=== PATIENT | male | born 1990 ===

== ENCOUNTER 2021-02-10 10:30 | Inpatient (IN) | payer MEDICAID ==
--- NOTE | 2021-02-10 11:25 | EDM.PDOC ---
<Edith Mead - Last Filed: 02/10/21 16:08> ED HPI GENERAL MEDICAL PROBLEM - General Chief Complaint: Skin Complaint Stated Complaint: LEFT ARM INFECTION/SWOLLEN SORE Time Seen by Provider: 02/10/21 10:50 Source of Information: Reports: Patient History Limitations: Reports: No Limitations - History of Present Illness INITIAL COMMENTS - FREE TEXT/NARRATIVE: Patient is a 30 y.o. male who presents to the ED with a skin infection to the left forearm with associated chills, headache, and nausea/vomiting. The patient states he began having pain in his left arm around 1 a.m. this morning, and noticed some redness and swelling. He took 2 extra strength Tylenol at that time with no relief. He also had 2 events of emesis early this morning and has some mild nausea and diffuse headache on arrival. He reports feeling chilled this morning but did not take his temperature. He reports the pain in his left arm has progressed into his left hand and right hand. He denies cough, SOB, chest pain, abdominal pain, diarrhea, constipation, dysuria, hematuria, or rash. He reports no recent alcohol or drug use. He admits to using marijuana but states he has not used in over a month. Patient has no known drug allergies. Onset: Today Duration: Constant Location: Reports: Upper Extremity, Left (left forearm ) Severity: Moderate Improves with: Reports: None Worsens with: Reports: None Associated Symptoms: Reports: Fever/Chills, Headaches, Nausea/Vomiting, Weakness Treatments [employer]: Reports: Acetaminophen (with no relief ) Left Arm Pain Score (Numeric/FACES): 10 - Related Data Allergies Allergy/AdvReac Type Severity Reaction Status Date / Time No Known Allergies Allergy Verified 02/10/21 10:48 Home Meds: Home Meds Acetaminophen [Tylenol] 650 mg PO Q4H PRN tablet 02/10/21 [Rx] Clindamycin in 0.9 % Sod Chlor [Clindamycin 900 mg/50 ml-Ns] 900 mg IV ONETIME #1 piggyback 02/10/21 [Rx] Enoxaparin [Lovenox] 40 mg SUBCUT DAILY syringe 02/10/21 [Rx] Piperacillin/Tazobactam [Zosyn 3.375 GM] 3.375 gm IV ONETIME #1 vial 02/10/21 [Rx] Vancomycin/Water For INJ (PEG) [Vancomycin 1.25 gm/250 ml Bag] 1.25 gm IV ONETIME #1 piggyback 02/10/21 [Rx] Past Medical History HEENT History: Reports: None Cardiovascular History: Reports: None Respiratory History: Reports: None Gastrointestinal History: Reports: None Genitourinary History: Reports: None Musculoskeletal History: Reports: None Neurological History: Reports: None Psychiatric History: Reports: None Endocrine/Metabolic History: Reports: None Hematologic History: Reports: None Immunologic History: Reports: None Oncologic (Cancer) History: Reports: None Dermatologic History: Reports: None - Infectious Disease History Infectious Disease History: Reports: None - Past Surgical History Head Surgeries/Procedures: Reports: None Social & Family History - Tobacco Use Tobacco Use Status *Q: Current Every Day Tobacco User Years of Tobacco use: 2 Packs/Tins Daily: 0.5 Second Hand Smoke Exposure: No - Caffeine Use Caffeine Use: Reports: Soda - Recreational Drug Use Recreational Drug Type: Reports: Marijuana/Hashish Other Recreational Drug Type: smokes about a month ago ED ROS GENERAL - Review of Systems Review Of Systems: See Below Constitutional: Reports: Fever, Chills, Fatigue HEENT: Reports: No Symptoms. Denies: Ear Pain, Throat Pain, Vision Change Respiratory: Denies: Shortness of Breath, Cough Cardiovascular: Reports: No Symptoms. Denies: Chest Pain, Dyspnea on Exertion GI/Abdominal: Reports: Nausea, Vomiting. Denies: Abdominal Pain, Diarrhea, Hematemesis : Reports: No Symptoms Musculoskeletal: Reports: Other (pain of the left forearm and in bilateral hands ) Skin: Reports: Erythema (erythema and swelling on the left forearm ) Neurological: Reports: Headache. Denies: Confusion, Dizziness, Numbness, Paresthesia Psychiatric: Reports: No Symptoms Hematologic/Lymphatic: Reports: No Symptoms ED EXAM, SKIN/RASH Exam: See Below Exam Limited By: No Limitations General Appearance: Alert, WD/WN, No Apparent Distress Eye Exam: Bilateral Eye: EOMI, Other (sclera icterus ) Nose: Normal Inspection, Normal Mucosa, No Blood Throat/Mouth: Normal Inspection, Normal Lips, Normal Teeth, Normal Gums, Normal Oropharynx, Normal Voice, No Airway Compromise Head: Atraumatic, Normocephalic Neck: Normal Inspection, Supple, Non-Tender, Full Range of Motion Respiratory/Chest: No Respiratory Distress, Lungs Clear, Normal Breath Sounds, No Accessory Muscle Use, Chest Non-Tender. No: Crackles, Rales, Wheezing Cardiovascular: Normal Peripheral Pulses, No Edema, No Gallop, No JVD, No Murmur, No Rub, Tachycardia Peripheral Pulses: 3+: Radial (L), Radial (R) GI/Abdominal: Normal Bowel Sounds, Soft, Non-Tender, No Organomegaly, No Distention, No Abnormal Bruit, No Mass (Male) Exam: Deferred Rectal (Males) Exam: Deferred Back Exam: Normal Inspection, Full Range of Motion, NT Extremities: No Pedal Edema, Normal Capillary Refill, Increased Warmth (over the left forearm ), Other (patient has pain on the dorsal left forearm and pain in bilateral hands; patient limits range of motion due to pain) Neurological: Alert, Oriented, CN II-XII Intact, Normal Cognition, Normal Gait, Normal Reflexes, No Motor/Sensory Deficits Psychiatric: Normal Affect, Normal Mood Skin: Other (8cm x 4.5 cm area of erythema, increased warmth and moderate swelling appreciated over the dorsal aspect of left forearm. No skin changes appreciated of the hands ). No: Diaphoretic Location, Skin: Upper Extremity, Left Associated features: Warmth, Tenderness, Swelling Lymphatic: No Adenopathy Course - Re-Assessments/Exams Free Text/Narrative Re-Assessment/Exam: We discussed the patient's physical exam, lab, and CT results with the patient. CBC is remarkable for infectious process: WBC17.4, with 85% neutrophils. CMP significant for bilirubin of 1.8 and ALT-68. Urine was significant for methamphetamines. The patient's CT was remarkable for cellulitis of the left forearm, but no abscess or osteomyelitis. The patient admitted to using IV meth after results of his urine toxicology screen. He states he used meth 4-5 days ago in his left arm. He denies any other illicit drug use. Departure - Departure Time of Disposition: 15:36 Disposition: Admitted As Inpatient 68 Condition: Fair Clinical Impression: Cellulitis Qualifiers: Site of cellulitis: extremity Site of cellulitis of extremity: upper extremity Laterality: left Qualified Code(s): L03.114 - Cellulitis of left upper limb - Discharge Information *PRESCRIPTION DRUG MONITORING PROGRAM REVIEWED*: Not Applicable *COPY OF PRESCRIPTION DRUG MONITORING REPORT IN PATIENT ALEX: Not Applicable Sepsis Event Note (ED) - Evaluation Sepsis Screening Result: Possible Sepsis Risk <James Quintero - Last Filed: 02/11/21 07:17> Course - Vital Signs Last Recorded V/S: Last Vital Signs Temp 38.4 C H 02/10/21 17:09 Pulse 100 02/10/21 16:10 Resp 18 02/10/21 16:10 BP 115/72 02/10/21 16:10 Pulse Ox 98 02/10/21 16:10 - Orders/Labs/Meds Orders: Active Orders 24 hr Category Date Time Status CULTURE BLOOD [BC] Stat Lab 02/10/21 11:13 Received CULTURE BLOOD [BC] Stat Lab 02/10/21 11:18 Received Blood Culture x2 Reflex Set [OM.PC] Stat Oth 02/10/21 11:03 Ordered Labs: Laboratory Tests 02/10/21 02/10/21 02/10/21 Range/Units 11:18 11:18 11:18 WBC 17.4 H (5.0-10.0) 10^3/uL RBC 4.86 (4.6-6.2) 10^6/uL Hgb 14.4 (14.0-18.0) g/dL Hct 39.5 L (40.0-54.0) % MCV 81.3 (80-100) fL MCH 29.6 (27.0-34.0) pg MCHC 36.5 H (33.0-35.0) g/dL Plt Count 221 (150-450) 10^3/uL Neut % (Auto) 85.0 H (42.2-75.2) % Lymph % (Auto) 4.5 L (20.5-50.1) % Chaves % (Auto) 10.3 H (2-8) % Eos % (Auto) 0.0 L (1.0-3.0) % Baso % (Auto) 0.2 (0.0-1.0) % Sodium 136 (136-145) mmol/L Potassium 3.4 L (3.5-5.1) mmol/L Chloride 97 L (98-107) mmol/L Carbon Dioxide 26 (21-32) mmol/L Anion Gap 16.4 H (7-13) mEq/L BUN 12 (7-18) mg/dL Creatinine 1.04 (0.70-1.30) mg/dL Est Cr Clr Drug Dosing 105.75 mL/min Estimated GFR (MDRD) > 60 BUN/Creatinine Ratio 11.5 (No establ ref range) Glucose 103 H (74-99) mg/dL Lactic Acid 1.2 (0.4-2.0) mmol/L Calcium 8.4 L (8.5-10.1) mg/dL Total Bilirubin 1.8 H (0.2-1.0) mg/dL AST 21 (15-37) U/L ALT 68 H (16-63) U/L Alkaline Phosphatase 91 (46-116) U/L Total Protein 8.0 (6.4-8.2) g/dL Albumin 3.8 (3.4-5.0) g/dL Globulin 4.2 Albumin/Globulin Ratio 0.9 Urine Color (YELLOW) Urine Appearance (CLEAR) Urine pH (5.0-9.0) Ur Specific [place] (1.005-1.030) Urine Protein (NEGATIVE) Urine Glucose (UA) (NEGATIVE) Urine Ketones (NEGATIVE) Urine Occult Blood (NEGATIVE) Urine Nitrite (NEGATIVE) Urine Bilirubin (NEGATIVE) Urine Urobilinogen (0.2-1.0) mg/dL Ur Leukocyte Esterase (NEGATIVE) Urine RBC /HPF Urine WBC (0-5/HPF) /HPF Ur Epithelial Cells (NOT SEEN) /HPF Urine Mucus (NOT SEEN) /LPF Urine Opiates Screen (NEGATIVE) Ur Oxycodone Screen (NEGATIVE) Urine Methadone Screen (NEGATIVE) Ur Barbiturates Screen (NEGATIVE) U Tricyclic Antidepress (NEGATIVE) Ur Phencyclidine Scrn (NEGATIVE) Ur Amphetamine Screen (NEGATIVE) U Methamphetamines Scrn (NEGATIVE) Urine MDMA Screen (NEGATIVE) U Benzodiazepines Scrn (NEGATIVE) Urine Cocaine Screen (NEGATIVE) U Marijuana (THC) Screen (NEGATIVE) SARS CoV-2 RNA Rapid KARLA (NEGATIVE) 02/10/21 02/10/21 02/10/21 Range/Units 12:30 12:30 15:18 WBC (5.0-10.0) 10^3/uL RBC (4.6-6.2) 10^6/uL Hgb (14.0-18.0) g/dL Hct (40.0-54.0) % MCV (80-100) fL MCH (27.0-34.0) pg MCHC (33.0-35.0) g/dL Plt Count (150-450) 10^3/uL Neut % (Auto) (42.2-75.2) % Lymph % (Auto) (20.5-50.1) % Chaves % (Auto) (2-8) % Eos % (Auto) (1.0-3.0) % Baso % (Auto) (0.0-1.0) % Sodium (136-145) mmol/L Potassium (3.5-5.1) mmol/L Chloride (98-107) mmol/L Carbon Dioxide (21-32) mmol/L Anion Gap (7-13) mEq/L BUN (7-18) mg/dL Creatinine (0.70-1.30) mg/dL Est Cr Clr Drug Dosing mL/min Estimated GFR (MDRD) BUN/Creatinine Ratio (No establ ref range) Glucose (74-99) mg/dL Lactic Acid (0.4-2.0) mmol/L Calcium (8.5-10.1) mg/dL Total Bilirubin (0.2-1.0) mg/dL AST (15-37) U/L ALT (16-63) U/L Alkaline Phosphatase (46-116) U/L Total Protein (6.4-8.2) g/dL Albumin (3.4-5.0) g/dL Globulin Albumin/Globulin Ratio Urine Color Dark yellow (YELLOW) Urine Appearance Clear (CLEAR) Urine pH 6.0 (5.0-9.0) Ur Specific [place] 1.025 (1.005-1.030) Urine Protein Negative (NEGATIVE) Urine Glucose (UA) Negative (NEGATIVE) Urine Ketones 40 H (NEGATIVE) Urine Occult Blood Trace-intact H (NEGATIVE) Urine Nitrite Negative (NEGATIVE) Urine Bilirubin Small H (NEGATIVE) Urine Urobilinogen 2.0 H (0.2-1.0) mg/dL Ur Leukocyte Esterase Negative (NEGATIVE) Urine RBC 0-5 /HPF Urine WBC 0-5 (0-5/HPF) /HPF Ur Epithelial Cells Few (NOT SEEN) /HPF Urine Mucus Few H (NOT SEEN) /LPF Urine Opiates Screen Negative (NEGATIVE) Ur Oxycodone Screen Negative (NEGATIVE) Urine Methadone Screen Negative (NEGATIVE) Ur Barbiturates Screen Negative (NEGATIVE) U Tricyclic Antidepress Negative (NEGATIVE) Ur Phencyclidine Scrn Negative (NEGATIVE) Ur Amphetamine Screen Negative (NEGATIVE) U Methamphetamines Scrn Positive H (NEGATIVE) Urine MDMA Screen Positive H (NEGATIVE) U Benzodiazepines Scrn Negative (NEGATIVE) Urine Cocaine Screen Negative (NEGATIVE) U Marijuana (THC) Screen Negative (NEGATIVE) SARS CoV-2 RNA Rapid KARLA Negative (NEGATIVE) Meds: Medications Discontinued Medications Generic Name Dose Route Start Last Admin Trade Name Freq PRN Reason Stop Dose Admin Acetaminophen 650 mg 02/10/21 17:10 02/10/21 17:26 Acetaminophen 325 Mg Tab PO 650 mg Q4H PRN Administration Pain/Fever Enoxaparin Sodium 40 mg 02/11/21 09:00 Enoxaparin 40 Mg/0.4 Ml Syringe SUBCUT DAILY JIMENA Hydromorphone HCl 0.5 mg 02/10/21 12:48 02/10/21 13:15 Hydromorphone 0.5 Mg/0.5 Ml Syringe IVPUSH 02/10/21 12:49 0.5 mg ONETIME ONE Administration Hydromorphone HCl 0.5 mg 02/10/21 18:12 02/10/21 18:32 Hydromorphone 0.5 Mg/0.5 Ml Syringe IVPUSH 0.5 mg Q3H PRN Administration Pain (severe 7-10) Vancomycin HCl 1.25 gm/ Sodium 250 mls @ 167 mls/hr 02/10/21 15:01 02/10/21 15:22 Chloride IV 02/10/21 16:30 167 mls/hr ONETIME ONE Administration Sodium Chloride 1,000 mls @ 999 mls/hr 02/10/21 15:05 02/10/21 15:21 Normal Saline IV 02/10/21 16:05 999 mls/hr .BOLUS ONE Administration Sodium Chloride 1,000 mls @ 999 mls/hr 02/10/21 16:11 02/10/21 16:24 Normal Saline IV 02/10/21 17:11 999 mls/hr .BOLUS ONE Administration Sodium Chloride 1,000 mls @ 999 mls/hr 02/10/21 16:13 02/10/21 16:52 Normal Saline IV 02/10/21 17:13 999 mls/hr .BOLUS ONE Administration Clindamycin Phosphate 900 mg/ 106 mls @ 200 mls/hr 02/10/21 17:24 02/10/21 17:38 Sodium Chloride IV 02/10/21 17:55 200 mls/hr ONETIME ONE Administration Sodium Chloride 1,000 mls @ 150 mls/hr 02/10/21 17:45 02/10/21 18:19 Normal Saline IV 150 mls/hr ASDIRECTED JIMENA Administration Piperacillin Sod/Tazobactam 100 mls @ 200 mls/hr 02/10/21 17:52 02/10/21 18:19 Sod 3.375 gm/ Sodium Chloride IV 02/10/21 18:21 200 mls/hr ONETIME ONE Administration Influenza Virus Vaccine 1 each 02/10/21 16:35 Pharmacy To Dose - Influenza Vaccine IM DAILY PRN Discharge Iopamidol 100 ml 02/10/21 11:54 02/10/21 13:14 Iopamidol 612 Mg/Ml 100 Ml Bottle IVPUSH 02/10/21 11:55 100 ml ONETIME ONE Administration
[2021-02-10 11:44] LABS: ANION GAP 16.4 mEq/L (7-13); CHLORIDE,CL 97 mmol/L (98-107); SODIUM,NA 136 mmol/L (136-145)
[2021-02-10] MEDS ORDERED: Iopamidol 612 MG/ML 100 ML Bottle IVPUSH ONE (11:54)
[2021-02-10] MEDS ORDERED: HYDROmorphone 0.5 MG/0.5 ML Syringe IVPUSH ONE (12:48)
--- NOTE | 2021-02-10 13:52 | CT ---
EXAMINATION: Forearm w Cont Lt SEX: Male AGE: 30 years CLINICAL HISTORY: 30-year-old male with swelling and redness dorsal aspect distal left forearm (admission to recent methamphetamine injection). No other known trauma. Scan technique: Volume acquisition of data left forearm (with elbow and wrist) obtained during the intravenous administration 100 cc nonionic Isovue contrast 3 cc/s via injector while patient was lying on the Siemens multislice scanner [place], [place]. All data archived in the PACS system for storage, reformatting axial/sagittal/coronal planes and study (soft tissue/bone windows). Interpretation: 1. No foreign bodies. 2. Cutaneous thickening with underlying subcutaneous edema or inflammation dorsal ulnar aspect distal left forearm. 3. No abnormal collections of gas in the soft tissues and no air-fluid levels. 4. No underlying inflammatory periostitis or signs of osteomyelitis. 5. No long bone radial/ulnar fracture or dislocation left elbow/wrist. CONCLUSION: Cellulitis distal left forearm. No foreign body, osteomyelitis or soft tissue abscess.
[2021-02-10] MEDS ORDERED: Sodium Chloride 0.9% 1,000 ML IV ONE ×3 (15:05→16:13)
[2021-02-10] MEDS ORDERED: Acetaminophen 325 MG Tab PO PRN (17:10)
[2021-02-10] MEDS ORDERED: Clindamycin Phosphate 900 MG in Sodium Chloride 0.9% 100 ML IV ONE (17:24)
[2021-02-10] MEDS ORDERED: Sodium Chloride 0.9% 1,000 ML IV SCH (17:45)
[2021-02-10] MEDS ORDERED: Piperacillin/Tazobactam 3.375 GM in Sodium Chloride 0.9% 100 ML IV ONE (17:52)
[2021-02-10] MEDS ORDERED: HYDROmorphone 0.5 MG/0.5 ML Syringe IVPUSH PRN (18:12)
--- NOTE | 2021-02-10 18:21 | PCM.HP ---
H&P History of Present Illness - General Date of Service: 02/10/21 Admit Problem/Dx: sepsis 2/2 LUE cellulitis - History of Present Illness Initial Comments - Free Text/Narative: 30M w/ pmh active meth use p/w left forearm swelling. Pt just noticed a painful lump just proximal to his left wrist today. He denies injecting meth there. He states he last used 4 days ago and it was in the other arm. There is also a scratch just distal to the lump which he states was his cats. The pain worsened quickly and pt presented to the ER. He was found tachy, febrile and w/ WBC 17k. His BP was stable and LA was 1.2. CT scan was done which did not reveal any purulence. He was admitted for sepsis 2/2 cellulitis. He received 1.25 g vancomycin and 3L NS bolus. I briefly saw him upon arrival on the unit and he was ill appearing but the hand was unimpressive w/ a noticeable tender lump and small surrounding area of cellulitis. I returned 1h later to conduct a detailed interview and pt had progressed to have extensive, hot to touch lymphangitis fro m the wrist to the arm pit w/ tenderness in the axilla. There is superficial almost urticaria like skin changes. No crepitus was felt. The area was marked. The pt is in severe distress. Given concern of rapidly progressing infection, possible early fascitis and possible need for surgical intervention the pt will be expeditiously transferred to [facility]. Pt will be dosed IV zosyn and clindamycin prior to ambulance. Pt was accepted by Dr Rich. Left Arm Pain Score (Numeric/FACES): 10 - Related Data Allergies/Adverse Reactions: Allergies Allergy/AdvReac Type Severity Reaction Status Date / Time No Known Allergies Allergy Verified 02/10/21 10:48 Home Medications: Home Meds Acetaminophen [Tylenol] 650 mg PO Q4H PRN tablet 02/10/21 [Rx] Clindamycin in 0.9 % Sod Chlor [Clindamycin 900 mg/50 ml-Ns] 900 mg IV ONETIME #1 piggyback 02/10/21 [Rx] Enoxaparin [Lovenox] 40 mg SUBCUT DAILY syringe 02/10/21 [Rx] Piperacillin/Tazobactam [Zosyn 3.375 GM] 3.375 gm IV ONETIME #1 vial 02/10/21 [Rx] Vancomycin/Water For INJ (PEG) [Vancomycin 1.25 gm/250 ml Bag] 1.25 gm IV ONETIME #1 piggyback 02/10/21 [Rx] Past Medical History HEENT History: Reports: None Cardiovascular History: Reports: None Respiratory History: Reports: None Gastrointestinal History: Reports: None Genitourinary History: Reports: None Musculoskeletal History: Reports: None Neurological History: Reports: None Psychiatric History: Reports: Addiction, Anxiety Endocrine/Metabolic History: Reports: None Hematologic History: Reports: None Immunologic History: Reports: None Oncologic (Cancer) History: Reports: None Dermatologic History: Reports: None - Infectious Disease History Infectious Disease History: Reports: None - Past Surgical History Head Surgeries/Procedures: Reports: None Social & Family History - Family History Family Medical History: No Pertinent Family History - Tobacco Use Tobacco Use Status *Q: Current Every Day Tobacco User Years of Tobacco use: 2 Packs/Tins Daily: 0.5 Second Hand Smoke Exposure: No - Caffeine Use Caffeine Use: Reports: Soda - Recreational Drug Use Recreational Drug Use: Yes Recreational Drug Type: Reports: Marijuana/Hashish, Methamphetamine Other Recreational Drug Type: smokes about a month ago Recreational Drug Use Frequency: Socially H&P Review of Systems - Review of Systems: Review Of Systems: See Below General: Reports: Fever, Chills, Diaphoresis HEENT: Reports: Headaches Pulmonary: Denies: Shortness of Breath, Wheezing, Cough Cardiovascular: Reports: Palpitations. Denies: Chest Pain Gastrointestinal: Reports: Abdominal Pain. Denies: Diarrhea Genitourinary: Denies: Dysuria Musculoskeletal: Reports: Arm Pain Psychiatric: Reports: Anxiety. Denies: Confusion Neurological: Denies: Dizziness Hematologic/Lymphatic: Denies: Easy Bleeding Immunologic: Denies: Food Allergy Exam - Exam Exam: See Below - Vital Signs Vital Signs: Last Vital Signs Temp 101.2 F H 02/10/21 17:09 Pulse 100 02/10/21 16:10 Resp 18 02/10/21 16:10 BP 115/72 02/10/21 16:10 Pulse Ox 98 02/10/21 16:10 Weight: 174 lb 12.8 oz - Exam Quality Assessment: No: Supplemental Oxygen General: Alert, Oriented, Cooperative, Mild Distress (2/2 pain) HEENT: Conjunctiva Clear Neck: Supple Lungs: Clear to Auscultation, Normal Respiratory Effort Cardiovascular: Regular Rhythm, Tachycardia GI/Abdominal Exam: Normal Bowel Sounds, Soft, Non-Tender, No Distention Back Exam: Normal Inspection Extremities: Other (tender ping pong ball diamteter lump on posterior aspect of left forearm just proximal to the wrist, tender lymphangitis from the lupm all the way to left axilla, hot to touch) Neurological: Normal Speech Neuro Extensive - Mental Status: Alert, Oriented x3 Neuro Extensive - Motor, Sensory, Reflexes: No: Tremor Psychiatric: Alert, Normal Affect, Anxious Physical Exam Comments:: ill appearing - Patient Data Lab Results Last 24 hrs: Laboratory Results - last 24 hr 02/10/21 02/10/21 02/10/21 Range/Units 11:18 11:18 11:18 WBC 17.4 H (5.0-10.0) 10^3/uL RBC 4.86 (4.6-6.2) 10^6/uL Hgb 14.4 (14.0-18.0) g/dL Hct 39.5 L (40.0-54.0) % MCV 81.3 (80-100) fL MCH 29.6 (27.0-34.0) pg MCHC 36.5 H (33.0-35.0) g/dL Plt Count 221 (150-450) 10^3/uL Neut % (Auto) 85.0 H (42.2-75.2) % Lymph % (Auto) 4.5 L (20.5-50.1) % Vance % (Auto) 10.3 H (2-8) % Eos % (Auto) 0.0 L (1.0-3.0) % Baso % (Auto) 0.2 (0.0-1.0) % Sodium 136 (136-145) mmol/L Potassium 3.4 L (3.5-5.1) mmol/L Chloride 97 L (98-107) mmol/L Carbon Dioxide 26 (21-32) mmol/L Anion Gap 16.4 H (7-13) mEq/L BUN 12 (7-18) mg/dL Creatinine 1.04 (0.70-1.30) mg/dL Est Cr Clr Drug Dosing 105.75 mL/min Estimated GFR (MDRD) > 60 BUN/Creatinine Ratio 11.5 (No establ ref range) Glucose 103 H (74-99) mg/dL Lactic Acid 1.2 (0.4-2.0) mmol/L Calcium 8.4 L (8.5-10.1) mg/dL Total Bilirubin 1.8 H (0.2-1.0) mg/dL AST 21 (15-37) U/L ALT 68 H (16-63) U/L Alkaline Phosphatase 91 (46-116) U/L Total Protein 8.0 (6.4-8.2) g/dL Albumin 3.8 (3.4-5.0) g/dL Globulin 4.2 Albumin/Globulin Ratio 0.9 Urine Color (YELLOW) Urine Appearance (CLEAR) Urine pH (5.0-9.0) Ur Specific [place] (1.005-1.030) Urine Protein (NEGATIVE) Urine Glucose (UA) (NEGATIVE) Urine Ketones (NEGATIVE) Urine Occult Blood (NEGATIVE) Urine Nitrite (NEGATIVE) Urine Bilirubin (NEGATIVE) Urine Urobilinogen (0.2-1.0) mg/dL Ur Leukocyte Esterase (NEGATIVE) Urine RBC /HPF Urine WBC (0-5/HPF) /HPF Ur Epithelial Cells (NOT SEEN) /HPF Urine Mucus (NOT SEEN) /LPF Urine Opiates Screen (NEGATIVE) Ur Oxycodone Screen (NEGATIVE) Urine Methadone Screen (NEGATIVE) Ur Barbiturates Screen (NEGATIVE) U Tricyclic Antidepress (NEGATIVE) Ur Phencyclidine Scrn (NEGATIVE) Ur Amphetamine Screen (NEGATIVE) U Methamphetamines Scrn (NEGATIVE) Urine MDMA Screen (NEGATIVE) U Benzodiazepines Scrn (NEGATIVE) Urine Cocaine Screen (NEGATIVE) U Marijuana (THC) Screen (NEGATIVE) SARS CoV-2 RNA Rapid KARLA (NEGATIVE) 02/10/21 02/10/21 02/10/21 Range/Units 12:30 12:30 15:18 WBC (5.0-10.0) 10^3/uL RBC (4.6-6.2) 10^6/uL Hgb (14.0-18.0) g/dL Hct (40.0-54.0) % MCV (80-100) fL MCH (27.0-34.0) pg MCHC (33.0-35.0) g/dL Plt Count (150-450) 10^3/uL Neut % (Auto) (42.2-75.2) % Lymph % (Auto) (20.5-50.1) % Vance % (Auto) (2-8) % Eos % (Auto) (1.0-3.0) % Baso % (Auto) (0.0-1.0) % Sodium (136-145) mmol/L Potassium (3.5-5.1) mmol/L Chloride (98-107) mmol/L Carbon Dioxide (21-32) mmol/L Anion Gap (7-13) mEq/L BUN (7-18) mg/dL Creatinine (0.70-1.30) mg/dL Est Cr Clr Drug Dosing mL/min Estimated GFR (MDRD) BUN/Creatinine Ratio (No establ ref range) Glucose (74-99) mg/dL Lactic Acid (0.4-2.0) mmol/L Calcium (8.5-10.1) mg/dL Total Bilirubin (0.2-1.0) mg/dL AST (15-37) U/L ALT (16-63) U/L Alkaline Phosphatase (46-116) U/L Total Protein (6.4-8.2) g/dL Albumin (3.4-5.0) g/dL Globulin Albumin/Globulin Ratio Urine Color Dark yellow (YELLOW) Urine Appearance Clear (CLEAR) Urine pH 6.0 (5.0-9.0) Ur Specific [place] 1.025 (1.005-1.030) Urine Protein Negative (NEGATIVE) Urine Glucose (UA) Negative (NEGATIVE) Urine Ketones 40 H (NEGATIVE) Urine Occult Blood Trace-intact H (NEGATIVE) Urine Nitrite Negative (NEGATIVE) Urine Bilirubin Small H (NEGATIVE) Urine Urobilinogen 2.0 H (0.2-1.0) mg/dL Ur Leukocyte Esterase Negative (NEGATIVE) Urine RBC 0-5 /HPF Urine WBC 0-5 (0-5/HPF) /HPF Ur Epithelial Cells Few (NOT SEEN) /HPF Urine Mucus Few H (NOT SEEN) /LPF Urine Opiates Screen Negative (NEGATIVE) Ur Oxycodone Screen Negative (NEGATIVE) Urine Methadone Screen Negative (NEGATIVE) Ur Barbiturates Screen Negative (NEGATIVE) U Tricyclic Antidepress Negative (NEGATIVE) Ur Phencyclidine Scrn Negative (NEGATIVE) Ur Amphetamine Screen Negative (NEGATIVE) U Methamphetamines Scrn Positive H (NEGATIVE) Urine MDMA Screen Positive H (NEGATIVE) U Benzodiazepines Scrn Negative (NEGATIVE) Urine Cocaine Screen Negative (NEGATIVE) U Marijuana (THC) Screen Negative (NEGATIVE) SARS CoV-2 RNA Rapid KARLA Negative (NEGATIVE) Result Diagrams: 02/10/21 11:18 02/10/21 11:18 Problem List Initiated/Reviewed/Updated: No Orders Last 24hrs: Active Orders 24 hr Category Date Time Status Admission Diagnosis [ADT] Routine ADT 02/10/21 15:24 Ordered Admission Status [Patient Status] [ADT] Routine ADT 02/10/21 15:24 Active Patient Status [ADT] Routine ADT 02/10/21 17:32 Ordered Influenza Vaccine Charge [RC] .DISCHARGE Care 02/10/21 16:36 Active Oxygen Therapy [RC] PRN Care 02/10/21 17:32 Ordered Ready for Discharge [RC] PER UNIT ROUTINE Care 02/10/21 18:11 Ordered Up ad Nan [RC] ASDIRECTED Care 02/10/21 17:32 Ordered VTE/DVT Education [RC] PER UNIT ROUTINE Care 02/10/21 17:32 Ordered Vital Signs [RC] Q4H Care 02/10/21 17:32 Ordered Regular Diet [DIET] Diet 02/11/21 Breakfast Ordered BASIC METABOLIC PANEL,BMP [CHEM] AM Lab 02/11/21 05:11 Ordered CBC WITH AUTO DIFF [HEME] AM Lab 02/11/21 05:11 Ordered CULTURE BLOOD [BC] Stat Lab 02/10/21 11:13 Received CULTURE BLOOD [BC] Stat Lab 02/10/21 11:18 Received MAGNESIUM [CHEM] AM Lab 02/11/21 05:11 Ordered PHOSPHORUS [CHEM] AM Lab 02/11/21 05:11 Ordered Acetaminophen [TylenoL] Med 02/10/21 17:10 Active 650 mg PO Q4H PRN Enoxaparin [Lovenox] Med 02/11/21 09:00 Active 40 mg SUBCUT DAILY HYDROmorphone [Dilaudid] Med 02/10/21 18:12 Ordered 0.5 mg IVPUSH Q3H PRN Pharmacy to Dose - InFluenza V [Pharmacy to Dose - Med 02/10/21 16:35 Ordered InFluenza Vaccine] 1 each IM DAILY PRN Piperacillin/Tazobactam [Zosyn] 3.375 gm Med 02/10/21 17:52 Ordered Sodium Chloride 0.9% [Normal Saline] 100 ml IV ONETIME Sodium Chloride 0.9% [Normal Saline] 1,000 ml Med 02/10/21 17:45 Active IV ASDIRECTED Blood Culture x2 Reflex Set [OM.PC] Stat Oth 02/10/21 11:03 Ordered Resuscitation Status Routine Resus Stat 02/10/21 17:32 Ordered Medication Orders Acetaminophen (Acetaminophen 325 Mg Tab) 650 mg PO Q4H PRN PRN Reason: Pain/Fever Last Admin: 02/10/21 17:26 Dose: 650 mg Documented by: JAREN Enoxaparin Sodium (Enoxaparin 40 Mg/0.4 Ml Syringe) 40 mg SUBCUT DAILY JIMENA Hydromorphone HCl (Hydromorphone 0.5 Mg/0.5 Ml Syringe) 0.5 mg IVPUSH Q3H PRN PRN Reason: Pain (severe 7-10) Sodium Chloride (Normal Saline) 1,000 mls @ 150 mls/hr IV ASDIRECTED JIMENA Piperacillin Sod/Tazobactam (Sod 3.375 gm/ Sodium Chloride) 100 mls @ 200 mls/hr IV ONETIME ONE Stop: 02/10/21 18:21 Influenza Virus Vaccine (Pharmacy To Dose - Influenza Vaccine) 1 each IM DAILY PRN PRN Reason: Discharge Assessment/Plan Comment:: #sepsis 2/2 LUE cellulitis - concern for rapidly progressing limb threatening infection - dosed vanco/zosyn/clinda - s/p 3L bolus - will be transferred in case surgical debridement needed
[2021-02-11] MEDS ORDERED: Enoxaparin 40 MG/0.4 ML Syringe SUBCUT SCH (09:00)
== END 2021-02-10 18:41 | DRG 872 ==
LOC: DL.ED 10:30 → DL.MS 15:24
PROVIDERS: ADMIT Internal Medicine; ATTEND Internal Medicine
DX: A41.9 Sepsis, unspecified organism (principal); L03.114 Cellulitis of left upper limb; L50.9 Urticaria, unspecified; F41.9 Anxiety disorder, unspecified; F17.200 Nicotine dependence, unspecified, uncomplicated; Z20.822 Contact with and (suspected) exposure to COVID-19; Z23 Encounter for immunization; Z79.899 Other long term (current) drug therapy
CPT/HCPCS: 36415; 73201-LT; 80053; 80305-QW; 81001; 83605; 85025; 87040; 96374; 96375; 99235; 99284; 99284-25; A9270-GY; J1170; J2543; J3370; J3490; J7030; J7050; Q9967; U0002